=== PATIENT | female | born 2000 | race Caucasian/White ===

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

== ENCOUNTER 2021-12-01 10:28 | Inpatient (IN) | payer OTHER ==
[~2021-12-01 10:28] MED LIST: TRI FEMYNOR 281 EACH; ZANTAC150 M3 PO; ZITHROMAX200 MG/52 PO; ZOFRAN4 MG PO
[2021-12-03] MEDS ORDERED: PROTONIX40 MG PO (14:05)
== END 2021-12-03 16:09 | disposition home or self-care (01) | DRG 392 ==
LOC: ER 10:28 → EMR PED 10:31 → ER 10:31 → PED 15:39
PROVIDERS: ADMIT Emergency Medicine; ATTEND Emergency Medicine
DX: K29.00 Acute gastritis without bleeding (principal); R10.13 Epigastric pain; F12.90 Cannabis use, unspecified, uncomplicated; Z20.822 Contact with and (suspected) exposure to COVID-19; E88.09 Other disorders of plasma-protein metabolism, not elsewhere classified

== ENCOUNTER 2022-11-05 09:19 | Outpatient (CLI) | payer OTHER ==
[~2022-11-05 09:19] MED LIST changes: +PROTONIX40 MG PO
== END 2022-11-05 10:42 | disposition home or self-care (01) ==
LOC: PRENATAL 09:19
PROVIDERS: ATTEND Obstetrics & Gynecology Maternal & Fetal Medicine
DX: O35.9XX0 Maternal care for (suspected) fetal abnormality and damage, unspecified, not applicable or unspecified (principal); O35.3XX0 Maternal care for (suspected) damage to fetus from viral disease in mother, not applicable or unspecified; O44.00 Complete placenta previa NOS or without hemorrhage, unspecified trimester; Z3A.21 21 weeks gestation of pregnancy

== ENCOUNTER 2023-03-18 05:52 | Inpatient (IN) | payer OTHER ==
[~2023-03-18] VITALS: Ht 152.4 cm; Wt 3.2 kg
[2023-03-18] MEDS ORDERED: PRENATABS RX T1 EACH PO (06:19)
[2023-03-18 07:54] LABS: HEMATOCRIT 32.7 % (36.0-45.00); HEMOGLOBIN 11.4 g/dL (12.0-15.00); MEAN CELL VOLUME 91.8 fL (80.00-100.00); MEAN CORPUSCULAR HEMOGLOBIN 31.9 pg (27.00-32.0); MEAN CORPUSCULAR HGB CONC 34.8 g/dl (32.0-36.0); PLATELET COUNT 200 K/uL (150-450); RED BLOOD COUNT 3.57 M/uL (4.00-6.00); RED CELL DISTRIBUTION WIDTH 12.7 % (11.5-14.5)
[2023-03-18 07:56] LABS: PH,URINE 6.5 (5.0-8.0); URINE APPEARANCE Clear; URINE BILIRRUBIN Negative (NEGATIVE); URINE BLOOD Negative; URINE COLOR Yellow; URINE GLUCOSE Negative (NEGATIVE); URINE LEUKOCYTE Trace; URINE NITRATE Negative; URINE PROTEIN Negative (NEGATIVE)
[2023-03-18 08:02] LABS: URINE BACTERIA 3240.4 uL (0.0-1933); URINE EPITHELIAL CELLS 35.9 uL (0.0-38.8); URINE RBC 2.4 uL (0.0-20.8); URINE WBC 29.1 uL (0.0-23.2)
[2023-03-18 08:14] LABS: INR < 0.93; PARTIAL THROMBOPLASTIN TIME 25.4 SECONDS (22.0-34.0); PROTHROMBIN TIME 9.5 SECONDS (9.0-11.5)
[2023-03-18 08:35] LABS: CALCIUM 9.2 mg/dL (8.5-10.1); CREATININE SERUM 0.53 mg/dL (0.55-1.02); GFR 145.62; POTASSIUM 3.91 mEq/L (3.5-5.1)
[2023-03-19 19:20] LABS: HEMATOCRIT 35.3 % (36.0-45.00); HEMOGLOBIN 11.9 g/dL (12.0-15.00); MEAN CELL VOLUME 92.6 fL (80.00-100.00); MEAN CORPUSCULAR HEMOGLOBIN 31.1 pg (27.00-32.0); MEAN CORPUSCULAR HGB CONC 33.6 g/dl (32.0-36.0); PLATELET COUNT 188 K/uL (150-450); RED BLOOD COUNT 3.81 M/uL (4.00-6.00); RED CELL DISTRIBUTION WIDTH 12.5 % (11.5-14.5)
[2023-03-20 07:25] LABS: HEMATOCRIT 31.7 % (36.0-45.00); HEMOGLOBIN 10.8 g/dL (12.0-15.00); MEAN CELL VOLUME 92.1 fL (80.00-100.00); MEAN CORPUSCULAR HEMOGLOBIN 31.3 pg (27.00-32.0); PLATELET COUNT 161 K/uL (150-450); RED BLOOD COUNT 3.44 M/uL (4.00-6.00); RED CELL DISTRIBUTION WIDTH 12.7 % (11.5-14.5)
== END 2023-03-21 16:15 | disposition home or self-care (01) | DRG 788 ==
LOC: LDR 05:52 → OB/GYN 05:52 → O/R 03-19 13:58 → OB/GYN 03-19 14:36
PROVIDERS: ADMIT Obstetrics & Gynecology; ATTEND Obstetrics & Gynecology
PROC: 3E0P7VZ Introduction of Hormone into Female Reproductive, Via Natural or Artificial Opening (ICD-10-PCS; 2023-03-18)
PROC: 4A1HXCZ Monitoring of Products of Conception, Cardiac Rate, External Approach (ICD-10-PCS; 2023-03-18)
PROC: 3E033VJ Introduction of Other Hormone into Peripheral Vein, Percutaneous Approach (ICD-10-PCS; 2023-03-19)
PROC: 10D00Z1 Extraction of Products of Conception, Low, Open Approach (ICD-10-PCS; principal; 2023-03-19 15:45)
DX: O62.1 Secondary uterine inertia (principal); O42.12 Full-term premature rupture of membranes, onset of labor more than 24 hours following rupture; Z3A.40 40 weeks gestation of pregnancy; Z37.0 Single live birth; Z20.822 Contact with and (suspected) exposure to COVID-19